=== PATIENT | female | born 1975 | race Caucasian/White ===

== ENCOUNTER → 2019-10-25 10:07 | Outpatient (CLI) | payer BC, SELFPAY ==
--- NOTE | ~2019-10-25 | US_ITS ---
EXAMINATION: US pelvic complete w TV DATE: 10/25/2019 10:49 INDICATION: Pelvic swelling. Palpable lump. Comparison:No prior studies for comparison. TECHNIQUE: Multiple transabdominal and endovaginal sonographic images of the pelvis performed. FINDINGS: The uterus measures 10.8 x 6 x 6.6 cm. There is a uterine fibroid measuring 3.1 x 3.1 x 3 c m anteriorly at the fundus. There are nabothian cysts. The endometrial complex measures 11 mm. The right ovary measures 2.7 x 1.5 x 2.3 cm and the left ovary measures 2.2 x 1.7 x 2.1 cm. There is a 1.4 cm follicle of the left ovary. There is no free fluid in the pelvis. There are no abnormal masses seen on either side. IMPRESSION: 1. 3.1 cm uterine fibroid. Reviewed, dictated and finalized at location A. S AND SERVICE ASSOCIATE IMPRESSION: 1. 3.1 cm uterine fibroid.
== END ==
PROVIDERS: PCP Nurse Practitioner; Visit Provider Nurse Practitioner
DX: R19.09 Other intra-abdominal and pelvic swelling, mass and lump (principal); D25.9 Leiomyoma of uterus, unspecified
CPT/HCPCS: 76830; 76856

== ENCOUNTER → 2019-11-22 10:24 | Outpatient (CLI) | payer BC, SELFPAY ==
--- NOTE | ~2019-11-22 | MM_ITS ---
EXAMINATION: MM screening rod BI w juliann HISTORY: Screening mammogram TECHNIQUE: Craniocaudal and mediolateral oblique 3-D tomosynthesis images were obtained and synthetic 2-D images were generated. CAD analysis was submitted and interpreted. COMPARISON: 09/02/2018 bilateral diagnostic digital mammogram 09/02/2018 bilateral complete breast ultrasound examination BREAST PARENCHYMAL COMPOSITION: The breasts are heterogeneously dense, which may obscure small masses . FINDINGS: Bilateral benign-appearing circumscribed opacities are noted in the upper outer quadrant of each breast, consistent with benign intramammary lymph nodes. There is no evidence of suspicious mas s, calcification, or architectural distortion to suggest malignancy in either breast. There has been no suspicious interval change. IMPRESSION: 1. No mammographic evidence of malignancy. 2. Recommend routine screening mammography in one year. BI-RADS Category 2: Benign finding(s). Reviewed, dictated and finalized at location A. TYPE WORKER
== END ==
PROVIDERS: Visit Provider Nurse Practitioner
DX: Z12.31 Encounter for screening mammogram for malignant neoplasm of breast (principal)
CPT/HCPCS: 77063; 77067

== ENCOUNTER 2020-02-27 00:06 | Outpatient (CLI) | payer BC, SELFPAY ==
[2020-02-27 15:54] LABS: SARS-CoV-2 RNA PCR Negative
== END 2020-02-27 00:07 | disposition home or self-care (01) ==
LOC: ANHCOVIDDT 00:06
PROVIDERS: Visit Provider Obstetrics & Gynecology Gynecology
DX: Z01.818 Encounter for other preprocedural examination (principal); Z11.59 Encounter for screening for other viral diseases
CPT/HCPCS: 87635; C9803; U0003

== ENCOUNTER 2020-02-27 07:44 | Outpatient (CLI) | payer BC, SELFPAY | END 2020-02-27 07:45 | disposition home or self-care (01) | LOC: ANHSURGERY 07:46 | PROVIDERS: Visit Provider Obstetrics & Gynecology Gynecology | DX: N81.10 Cystocele, unspecified (principal) | CPT/HCPCS: 36415; 86850; 86900; 86901 ==

== ENCOUNTER 2020-03-01 03:06 | Day surgery (SDC) | payer BC, SELFPAY ==
[2020-02-18 15:09] VITALS: BMI 25.7
--- NOTE | 2020-02-29 16:07 | WPDANESEPP ---
Anes - Eval Pre Procedure Procedure: Operation Date: 03/01/20 07:30 Proposed Procedures p Vaginal Hysterectomy, Bilateral Salpingo-Oophorectomy - Kate Malik MD s Anterior Repair - Kate Malik MD Date/Time: 02/29/20 16:07 Surgeon: faye Pre Op Diagnosis: pelvic organ prolapse Patient Data Age: 44 Gender: F Height: 1.63 m Weight: 68.05 kg Allergies Allergy/AdvReac Type Severity Reaction Status Date / Time No Known Allergies Allergy Mild Unverified 02/18/20 15:47 Home Medications Medication Instructions Recorded Confirmed Type multivitamin [Daily Multi-Vitamin] 1 tablet PO DAILY 02/18/20 02/18/20 History omeprazole magnesium [Prilosec OTC] 20 mg PO DAILY 02/18/20 02/18/20 History Patient hx anesthesia problems: none Family hx anesthesia problems: none PMFSH Past Medical History Medical History (Updated 02/29/20 @ 16:09 by Ashley Espitia CRNA) GERD (gastroesophageal reflux disease) Surgical History Surgical History (Updated 02/29/20 @ 16:09 by Ashley Espitia CRNA) H/O tubal ligation Social History Social History Gender identity (if verbalized by the patient): Female Exam Day of Procedure 02/29/20 16:07
[2020-03-01] VITALS (16 sets, daily range): BP systolic 78–146; BP diastolic 44–68; PULSE 68–105; RESP 10–20; TEMP 36.1–36.9; O2SAT 93–100
--- NOTE | 2020-03-01 06:55 | WPDANESEPPF ---
Anes - Initial Pre Proc Eval Procedure: Operation Date: 03/01/20 07:30 Proposed Procedures p Vaginal Hysterectomy, Bilateral Salpingo-Oophorectomy - Kate Malik MD s Anterior Repair - Kate Malik MD Date/Time: 03/01/20 06:55 Surgeon: Kate Malik MD Pre Op Diagnosis: pelvic organ prolapse Patient Data Age: 44 Gender: F Height: 5 ft 4 in Weight: 68.05 kg Allergies Allergy/AdvReac Type Severity Reaction Status Date / Time No Known Allergies Allergy Mild Unverified 02/18/20 15:47 Home Medications Medication Instructions Recorded Confirmed Type multivitamin [Daily Multi-Vitamin] 1 tablet PO DAILY 02/18/20 02/18/20 History omeprazole magnesium [Prilosec OTC] 20 mg PO DAILY 02/18/20 02/18/20 History Patient hx anesthesia problems: none Family hx anesthesia problems: none [facility] Past Medical History Medical History (Updated 02/29/20 @ 16:09 by Ashley Espitia CRNA) GERD (gastroesophageal reflux disease) Surgical History Surgical History (Updated 02/29/20 @ 16:09 by Ashley Espitia CRNA) H/O tubal ligation Social History Social History Gender identity (if verbalized by the patient): Female Anes - Eval Final PreProcedure Day of Procedure 03/01/20 06:55 Patient weight: normal Heart: regular rate and rhythm Lungs: clear to auscultation Airway: Mallampati scale class II Neurological: alert and oriented Last oral intake: >/= 8 hours ASA classification: II Emergent: no Anesthetic plan: proceed Anesthesia type and monitoring: general ETT and standard monitoring Informed Consent: The patient's anesthetic plan and its attendant risks and benefits were discussed with the patient/family/POA. Questions were solicited and answers provided to the satisfaction of the patient/family/POA.
--- NOTE | 2020-03-01 07:13 | PM.IMHP ---
H&P: HPI History of Present Illness Chief complaint: pelvic organ prolapse Narrative: Michelle Schaffer is a 44 year old female with increasing uterine prolapse and cystocele. Patient complains of increased pelvic pressure and pulling. No or GI complaints. Patient has decided on surgical repair over other options. Reviewed procedure and plan for TVH-possible BSO and anterior vaginal repair. Risks of needing to convert to open discussed. Uterus 10.8 cm with anterior 3 cm fibroid noted. Aware I may not be able to remove tubes and ovaries if not able to reach them. Patient aware removal of ovaries will mean she is menopausal and plans to take estrogen. Patient initially did not want ovaries removed but has decided she does now want them removed if possible. Risks of infection, bleeding, and injury to internal organs reviewed (navid. bowel, bladder, ureters). Discussed risks of DVT and general anesthesia as well. Patient questions answered and patient agrees to proceed. Review of Systems Constitutional: Constitutional: Reports no additional constitutional complaints Cardiovascular: Cardiovascular: Reports no additional cardiovascular complaints Respiratory: Respiratory: Reports no additional respiratory complaints Gastrointestinal: Gastrointestinal: Reports no additional gastrointestinal complaints Genitourinary: Genitourinary: Reports no additional female genitourinary complaints Comments: pelvic pressure PMFSH Past Medical History Medical History (Updated 03/01/20 @ 07:22 by Kate Malik MD) GERD (gastroesophageal reflux disease) Gonorrhea (normal spontaneous vaginal delivery) Surgical History Surgical History (Updated 02/29/20 @ 16:09 by Ashley Espitia CRNA) H/O tubal ligation Social History Social History Gender identity (if verbalized by the patient): Female Meds Home Medications and Allergies Home Medications Medication Instructions Recorded Confirmed Type multivitamin [Daily Multi-Vitamin] 1 tablet PO DAILY 02/18/20 02/18/20 History omeprazole magnesium [Prilosec OTC] 20 mg PO DAILY 02/18/20 02/18/20 History Allergies Allergy/AdvReac Type Severity Reaction Status Date / Time No Known Allergies Allergy Mild Unverified 03/01/20 07:17 Exam Const: General: healthy appearing and alert Orientation/consciousness: patient oriented x3 Resp: Effort & Inspection: normal respiratory effort Auscultation: clear to auscultation bilaterally Cardio: Rate: regular rate Rhythm: regular rhythm GI: GI Palp: Yes Soft to palpation, No Tenderness to palpation present (GI) and No Palpable mass present : External Female Exam: normal external appearance Speculum Exam - Vagina: normal appearance of the vagina and normal vaginal discharge Speculum Exam - Cervix: normal appearance of the cervix Bimanual exam- vagina & uterus: uterine size normal, consistency normal and other (uterus +2 spines ) Bimanual Exam- Adnexa, other: normal adnexae, No adnexal tenderness and cystocele Neuro: General: patient oriented x3 Assessment and Plan Assessment and plan (1) Uterine prolapse: Code(s): N81.4 - Uterovaginal prolapse, unspecified Status: Acute Assessment and Plan: Plan TVH-possible BSO (2) Cystocele: Status: Acute Assessment and Plan: plan anterior vaginal repair
[2020-03-01] MEDS: ceFAZolin 2 GM/D5W 50 ML 2 GM/50 ML BAG IVPB (07:25)
[2020-03-01] MEDS: LIDO 1%/EPINEPHRINE 1:100,000 20 ML VIAL 30 ML INFILTRATE (08:07)
--- NOTE | 2020-03-01 09:06 | PM.OP ---
Procedure Note - Brief Procedure Note - Brief Date of procedure: 03/01/20 Pre-op diagnosis: pelvic organ prolapse uterine prolapse; cystocele Post-op diagnosis: same Procedure performed: TVH-BSO; anterior vaginal repair Anesthesia: SO Surgeon: Kate Malik MD Estimated blood loss (mL): 100 Drains: Yes (arriaga) Packing: Yes (vaginal) Pathology: yes (uterus, tubes, and ovaries) Complications: No immediate complications Condition: stable Disposition: PACU Findings: enlarged fibroid uterus; cervix at 1 cm above introitus at rest; 2nd degree cystocele; normal appearing tubes and ovaries
--- NOTE | 2020-03-01 09:07 | P.DS_ITS ---
DS: Admitting Diagnosis Admitting Diagnosis Admitting Diagnosis: Cystocele, unspecified uterine prolapse DS: Discharge Diagnosis Discharge Diagnosis (1) Uterine prolapse: Code(s): N81.4 - Uterovaginal prolapse, unspecified Status: Acute (2) Cystocele: Status: Acute DS: Summary Hospital Course Reason for hospitalization: post op observation for bleeding and for pain control Status at Discharge Functional status at discharge: independent ambulation Overall status at discharge: patient is progressing back to baseline Time Spent with Patient Time attestation: Total time spent providing and/or coordinating discharge services: DS: Data Data Completed and Pending Pending studies at discharge: Pending at discharge 03/01/20 08:36 Surgical [PTH] Routine Discharge Plan Discharge Patient Disposition: Home, Self-Care Discharge Instructions: pelvic rest x 6 wks no lifting >10 lbs no driving x 2 wks shower only until 6 wks Follow-up/Referrals: Kate Malik MD [Physician] - 1 Week Discharge Medications: New estradiol [Climara] 0.05 mg/24 hr Patch Weekly 0.05 mg transdermal WEEKLY Qty: 4 RF: 12 hydrocodone-acetaminophen 5-325 mg Tablet 1 tab PO Q3H PRN (Reason: Pain Rated 5 Or Less) Qty: 20 RF: 0 Continued multivitamin [Daily Multi-Vitamin] Tablet 1 tablet PO DAILY RF: 0 omeprazole magnesium [Prilosec OTC] 20 mg Tablet,Delayed Release (Dr/Ec) 20 mg PO DAILY RF: 0 Primary Care Provider: PHYSICIAN,CUSTOM STUDIO COORDINATOR Attending physician on admission: Kate Malik
[2020-03-01] MEDS: LACTATED RINGERS 1,000 ML 30 ML IV CONT ×3 (09:12→10:07)
[2020-03-01] MEDS: ONDANSETRON INJ 4 MG/2 ML VIAL IV PUSH ×2 (09:36→16:49)
--- NOTE | 2020-03-01 10:22 | SUR.PHASEI ---
1020 updated brittney(Cuco) ON PT CONDTIOBN AND ROOM#
[2020-03-01] MEDS: DEXTROSE 5%/LACTATED RINGERS 1,000 ML 125 ML IV CONT ×2 (11:15→18:51)
[2020-03-01] MEDS: KETOROLAC 30 MG/ML VIAL (*BKC) IV PUSH (11:17)
--- NOTE | 2020-03-01 11:23 | PC.NURSE ---
This patient, Michelle Schaffer, was received from PACU on 03/01/20 at 1100. Patient/family oriented to unit policies and routines
[2020-03-01] MEDS: ESTRADIOL 7 DAY 0.05 MG PATCH TRANSDERM (13:33)
[2020-03-01] MEDS: PANTOPRAZOLE 40 MG TABLET PO (21:05)
--- NOTE | 2020-03-01 21:38 | OP_ITS ---
DATE OF PROCEDURE: 03/01/2020 PREOPERATIVE DIAGNOSES: Uterine prolapse, cystocele. POSTOPERATIVE DIAGNOSES: Uterine prolapse, cystocele. PROCEDURES PERFORMED: Total vaginal hysterectomy, bilateral salpingo-oophorectomy, anterior vaginal repair. ANESTHESIA: General with ET tube. FINDINGS: The uterus at rest under anesthesia is 1 cm above the introitus, there was a second-degree cystocele. Normal-appearing tubes and ovaries. The uterus was enlarged with fibroids, one in the fundus and one in the lower cervix. ESTIMATED BLOOD LOSS: 100 mL. PATHOLOGY: Uterus, tubes, and ovaries. DESCRIPTION OF PROCEDURE: The patient was taken to the operating room, placed under anesthesia in the dorsal lithotomy position. She was prepped and draped in usual sterile fashion. A short weighted speculum was placed posteriorly. Leroy retractor was placed anteriorly. The cervix was grasped on the anterior lip with a tenaculum and the vaginal mucosa is injected circumferentially with 1% lidocaine with epinephrine. The scalpel was used to circumferentially incise the vaginal mucosa around the cervix. The vaginal mucosa is dissected off anteriorly using blunt dissection. The peritoneum was entered with Metzenbaum. The Leroy retractor was replaced intraperitoneally. The posterior vaginal mucosa was dissected off the cervix using sharp and blunt dissection. The peritoneum was entered with a Pean and once the incision was extended laterally, the long curved weighted speculum was placed intraperitoneally. The cardinal and uterosacral ligaments were serially clamped, transected, and suture ligated with 0 Vicryl. Tagged for future use. The uterine vessels were clamped, transected, suture ligated with 0 Vicryl. The posterior fundus was grasped with piercing towel clamps and the fundus was delivered through the posterior cul-de-sac. The utero-ovarian ligaments are clamped, transected, and suture ligated with 0 Vicryl and tagged for future use. The uterus was handed off. A moist sponge stick was placed top of the omentum out of the surgical field. The left tube and ovary are grasped with a Lake. The infundibulopelvic ligament was clamped, transected, and suture-ligated with 0 Vicryl. The identical procedure was performed on the opposite side. All pedicles were hemostatic. The sponge stick was removed. The peritoneum was closed using 0 Ethibond in a pursestring fashion. The vaginal mucosa was closed using 0 Vicryl in a running locked fashion. Attention was then turned to the cystocele. The base of the cystocele was grasped with Allis clamps at 5 and 7 o'clock. The intervening tissue was incised in a horizontal fashion with a scalpel. The midline vaginal mucosa was dissected off the cystocele using Metzenbaums. The edges were grasped with Allis clamps until the apex was reached. The lateral portions of the vaginal mucosa were dissected off using sharp and blunt dissection. The cystocele was reduced using 0 Ethibond horizontal interrupted mattress sutures. Once the cystocele was fully reduced, excess vaginal mucosa was excised using Metzenbaums. The vaginal mucosa was closed using 0 Vicryl in a running locked fashion. Vaginal packing coated with Premarin cream was placed vaginally. Noyola catheter is previously placed by the OR staff. The patient was awakened from anesthesia and taken to Recovery in stable condition. Ernesto I MT: Georgie
[2020-03-02 00:40] VITALS: BP 101/55; PULSE 110; RESP 16; TEMP 36.9; O2SAT 100
[2020-03-02 06:05] LABS: Basophils Percent Auto 0.1 % (0.2-1.2); Eosinophils Percent Auto 0.1 % (0-4.4); Hematocrit 37.1 % (37.0-47.0); Hemoglobin 12.6 g/dL (12.0-15.0); Immature Granulocyte Absolute 0.06 K/mm3 (0.00-0.031); Immature Granulocyte Percent A 0.4 % (0-0.5); Lymphocytes Absolute Auto 1.89 K/mm3 (0.9-3.2); Lymphocytes Percent Auto 12.4 % (18.3-44.2); Mean Corpuscular Hemoglobin 29.6 pg (26-34); Mean Corpuscular Volume 87.1 fl (80-100); Mean Platelet Volume 9.7 fl (7.4-10.4); Monocytes Absolute Auto 1.5 K/mm3 (0.1-0.6); Monocytes Percent Auto 9.7 % (2.6-8.5); Neutrophils Absolute Auto 11.8 K/mm3 (1.3-6.7); Neutrophils Percent Auto 77.3 % (45.5-73.1); Platelet Count Result 264 k/mm3 (150-375); Red Blood Count 4.26 M/mm3 (4.2-5.4); White Blood Count 15.3 K/mm3 (4.5-10.0)
--- NOTE | 2020-03-02 07:47 | P.PNAN_ITS ---
Anes - Prog Note Post-Op Date/Time: 03/02/20 07:47 Cardiovascular status: normal Respiratory status: normal Airway patency: baseline Mental status: baseline Post-Op hydration status: normal Vital Signs: Last Vital Signs Temp 36.9 C 03/02/20 00:40 Pulse 110 H 03/02/20 00:40 Resp 16 03/02/20 00:40 BP 101/55 L 03/02/20 00:40 Pulse Ox 100 03/02/20 00:40 I/O: Intake & Output 03/01/20 03/01/20 03/02/20 15:59 23:59 07:59 Intake Total 1750 1290 Output Total 100 1650 1250 Balance 6489 -360 -5106 Laboratory Tests 03/02/20 05:55 03/02/20 05:55 WBC 15.3 H RBC 4.26 Hgb 12.6 Hct 37.1 MCV 87.1 MCH 29.6 MCHC 34.0 RDW 15.0 H Plt Count 264 MPV 9.7 Immature Gran % (Auto) 0.4 Neut % (Auto) 77.3 H Lymph % (Auto) 12.4 L [place]han % (Auto) 9.7 H Eos % (Auto) 0.1 Baso % (Auto) 0.1 L Lymph # (Auto) 1.89 [place] # (Auto) 1.5 H Eos # (Auto) 0.0 Baso # (Auto) 0.0 Abs Immat Gran (auto) 0.06 H Absolute Neuts (auto) 11.8 H Absolute Nucleated RBC 0.0 Nucleated RBC % 0.0 Post-procedural complaints: nausea (mild, treatment effective) Patient Feedback: Patient satisfied with anesthetic care.
[2020-03-02 07:55] VITALS: BP 90/66; PULSE 103; RESP 16; TEMP 37.1; O2SAT 100
--- NOTE | 2020-03-02 07:55 | PM.GYNPNOP ---
DIABETES EDUCATOR - A/P Assessment and plan (1) History of total vaginal hysterectomy (TVH): Code(s): Z90.710 - Acquired absence of both cervix and uterus Status: Acute Assessment and Plan: Doing well post op. DC home. Plans patch E2 Postoperative Procedures: Procedures Operation Date: 03/01/20 07:30 Actual Procedures Side Surgeon p Vaginal Hysterectomy, Bilateral Salpingo-Oophorectomy Bilateral Kate Malik MD s Anterior Repair Not Applicable Kate Malik MD Time Spent With Patient Time: Total time spent is greater than 50% in coordination of care (as documented) at patient's floor/unit and/or counseling patient: Time with patient: less than 15 minutes DIABETES EDUCATOR- PN:Subj Post-Op Subjective Date/time seen: 03/02/20 07:55 Subjective: patient reports feeling better, pain is well controlled and other (nausea last night but not now) Exam GI: Other: abdomen soft, nt DIABETES EDUCATOR - PN: Obj Data Vital Signs Vital Signs: Vital Signs - 24 hr 03/01/20 09:15 03/01/20 09:30 03/01/20 09:45 Temperature 97.3 F L Pulse Rate 75 69 68 Respiratory Rate 12 16 10 L Blood Pressure 93/48 L 78/44 L 101/59 L Pulse Oximetry 100 100 100 03/01/20 09:58 03/01/20 10:12 03/01/20 10:30 Temperature Pulse Rate 81 80 79 Respiratory Rate 16 12 14 Blood Pressure 102/61 113/63 107/60 Pulse Oximetry 96 97 93 03/01/20 11:00 03/01/20 11:15 03/01/20 11:30 Temperature 96.9 F L Pulse Rate 79 83 83 Respiratory Rate 18 16 16 Blood Pressure 107/61 101/61 146/54 H Pulse Oximetry 100 99 97 03/01/20 11:45 03/01/20 12:00 03/01/20 12:30 Temperature 97.8 F Pulse Rate 86 86 96 Respiratory Rate 16 16 16 Blood Pressure 103/60 111/57 L 102/55 L Pulse Oximetry 97 98 97 03/01/20 13:00 03/01/20 14:00 03/01/20 21:00 Temperature 98.4 F Pulse Rate 83 93 105 H Respiratory Rate 16 16 16 Blood Pressure 111/63 114/67 104/60 Pulse Oximetry 100 100 98 06/09/20 00:40 Temperature 98.4 F Pulse Rate 110 H Respiratory Rate 16 Blood Pressure 101/55 L Pulse Oximetry 100 Intake/Output Intake/Output: Intake & Output 02/28/20 02/29/20 03/01/20 03/02/20 23:59 23:59 23:59 23:59 Intake Total 3140 Output Total 1750 1250 Balance 1390 -1250 Meds/Results Medications: Active Medications Generic Name Dose Route Start Last Admin Trade Name Freq PRN Reason Stop Dose Admin Hydrocodone Bitart/Acetaminophen 1 tab 03/01/20 10:51 Bowie 5-325 Mg PO Q3H PRN Pain Rated 5 or Less Hydrocodone Bitart/Acetaminophen 1 tab 03/01/20 10:51 Bowie 10-325 Mg PO Q3H PRN Pain Rated 6 or Greater Estradiol 0.05 mg 03/01/20 11:00 03/01/20 13:33 Climara 7 Day TRANSDERM 0.05 mg WEEKLY ABIODUN Administration Dextrose/Lactated Ringer's 1,000 mls @ 125 mls/hr 03/01/20 10:51 03/01/20 18:51 Dextrose 5%/Lactated Ringers IV CONT 125 mls/hr .Q8H ABIODUN Administration Fentanyl Citrate 600 mcg in 30 mls @ 0 mls/hr 03/01/20 11:30 03/02/20 05:30 Fentanyl 20 Mcg/Ml Office Administrator IV CONT 10 mls/hr .Q0M PRN Titration WASTE MACHINE TENDER Management Protocol As Directed Ibuprofen 600 mg 03/01/20 10:51 Motrin PO Q6H PRN Cramping Ketorolac Tromethamine 30 mg 03/01/20 10:51 03/01/20 11:17 Toradol Inj IV PUSH 03/06/20 10:52 30 mg Q6H PRN Administration Pain Rated 4-6 Naloxone HCl 0.1 mg 03/01/20 10:51 Narcan IV PUSH Q2M PRN Respiratory rate less than 10 Ondansetron HCl 4 mg 03/01/20 10:51 03/01/20 16:49 Zofran Inj IV PUSH 4 mg Q6H PRN Administration Nausea And Vomiting Pantoprazole Sodium 40 mg 03/01/20 21:00 03/01/20 21:05 Protonix PO 40 mg Q24H ABIODUN Administration Simethicone 80 mg 03/01/20 10:51 Mylicon PO Q2H PRN Gas Labs CBC & Chem 7: 03/02/20 05:55 Labs: Laboratory Results - last 24 hr 03/02/20 05:55 WBC 15.3 H RBC 4.26 Hgb 12.6 Hct 37.1 MCV 87.1 MCH 29.6 MCHC 3
[2020-03-02] MEDS: IBUPROFEN 600 MG TABLET PO (08:28)
== END 2020-03-02 14:30 | disposition home or self-care (01) ==
LOC: ANHSURGERY 09:09 → ANHOB2 15:06
PROVIDERS: Visit Provider Obstetrics & Gynecology Gynecology
PROC: (CPT 58260; principal; 2020-03-01 07:30)
PROC: (CPT 57260; 2020-03-01 07:30)
DX: N81.4 Uterovaginal prolapse, unspecified (principal); N88.8 Other specified noninflammatory disorders of cervix uteri; N80.0 Endometriosis of uterus; D25.1 Intramural leiomyoma of uterus; N83.10 Corpus luteum cyst of ovary, unspecified side; K21.9 Gastro-esophageal reflux disease without esophagitis
CPT/HCPCS: 58262; 57240; 36415; 85025; 88307; 99199; A9270; J0131; J0690; J1100; J1170; J1885; J2250; J2405; J2704; J2710; J3010; J7030; J7120; J7121

== ENCOUNTER 2020-08-12 00:08 | Outpatient (CLI) | payer BC, SELFPAY ==
[2020-08-12 21:00] LABS: SARS-CoV-2 RNA PCR Negative
== END 2020-08-12 00:09 | disposition home or self-care (01) ==
LOC: ANHCOVIDDT 00:08
PROVIDERS: Visit Provider Podiatrist Foot & Ankle Surgery
DX: Z01.812 Encounter for preprocedural laboratory examination (principal); Z20.828 Contact with and (suspected) exposure to other viral communicable diseases
CPT/HCPCS: 87635; C9803; U0003

== ENCOUNTER 2020-08-13 04:11 | Day surgery (SDC) | payer BC, SELFPAY ==
[2020-08-03 09:59] VITALS: BMI 26.1
--- NOTE | 2020-08-12 09:00 | WPDANESEPPF ---
Anes - Initial Pre Proc Eval Procedure: Operation Date: 08/13/20 13:00 Proposed Procedures p Excision Soft Tissue Mass Second Toe Left Foot - Sagar Maciel DPM Date/Time: 08/12/20 09:00 Surgeon: Sagar Maciel DPM Pre Op Diagnosis: soft tissue mass 2nd toe left foot Patient Data Age: 44 Gender: F Height: 1.63 m Weight: 69 kg Allergies Allergy/AdvReac Type Severity Reaction Status Date / Time No Known Allergies Allergy Mild Verified 08/13/20 11:14 Home Medications Medication Instructions Recorded Confirmed Type omeprazole magnesium [Prilosec OTC] 20 mg PO DAILY 02/18/20 08/03/20 History Patient hx anesthesia problems: none Family hx anesthesia problems: none PMFSH Past Medical History Medical History (Updated 03/01/20 @ 07:22 by Kate Malik MD) GERD (gastroesophageal reflux disease) Gonorrhea (normal spontaneous vaginal delivery) Surgical History Surgical History (Updated 08/12/20 @ 09:00 by Surinder Zabala DO) H/O tubal ligation History of total vaginal hysterectomy (TVH) Social History Social History Smoking status: Never smoker Second hand tobacco smoke exposure: No Alcohol intake: current Drinks per week: 1 Substance use: never Living arrangements: alone Gender identity (if verbalized by the patient): Female Spiritual care concerns: No Anes - Eval Final PreProcedure Day of Procedure 08/12/20 09:00 Patient weight: overweight Heart: regular rate and rhythm Lungs: clear to auscultation and normal air movement Airway: Mallampati scale class II Neurological: alert and oriented Last oral intake: >/= 8 hours ASA classification: II Emergent: no Anesthetic plan: proceed Anesthesia type and monitoring: general LMA and standard monitoring Informed Consent: The patient's anesthetic plan and its attendant risks and benefits were discussed with the patient/family/POA. Questions were solicited and answers provided to the satisfaction of the patient/family/POA.
[2020-08-13 11:20] VITALS: BP 108/59; PULSE 76; RESP 16; TEMP 36.6; O2SAT 100
[2020-08-13] MEDS: LACTATED RINGERS 1,000 ML 30 ML IV CONT (11:46)
--- NOTE | 2020-08-13 12:56 | WPDHPUPDATE1 ---
History and Physical Update Update Date/Time: 08/13/20 12:56 History and Physical has been reviewed, including an updated exam of the patient. There are NO changes in the patient's condition. Risks, benefits, and alternatives have been discussed and questions answered. Patient agrees to proceed with procedure.
[2020-08-13] MEDS: SCOPOLAMINE 1.5 MG PATCH TRANSDERM (13:13)
--- NOTE | 2020-08-13 13:13 | SUR.PREOP ---
Discussed delay with patient, voices understanding.
[2020-08-13] MEDS: ceFAZolin 2 GM/D5W 50 ML 2 GM/50 ML BAG IVPB (13:46)
--- NOTE | 2020-08-13 14:11 | PM.PROC ---
Procedure Note - Detailed Date of procedure: 08/13/20 Pre-op diagnosis: soft tissue mass 2nd toe left foot Post-op diagnosis: same Procedure performed: Excision of soft tissue mass left foot Description of procedure: Under monitored sedation patient was brought into the operating room, placed on the operating table. Following MAC anesthesia local anesthesia was obtained using 2% Lidocaine plain and 0.5% Marcaine plain. The foot was then scrubbed, prepped, and draped in the usual aseptic manner. Attention was then directed to the dorsal left foot where a mass could be palpated. An incision was made over the lesion and was deepened down to the level of the mass using sharp and blunt dissection with great care taken to identify and retract all vital, neural and vascular structures. The mass was carefully dissected free of all soft tissue attachments and removed. It had the appearance of a lipoma. Wound was then flushed with copious amounts of sterile normal saline. the skin was repaired using 4-0 nylon. The wounds were then covered with a dry, sterile compressive dressing consisting of Steristrips, antibiotic ointment, Adaptic, 4 x 4?s, Ivy and Coban. The ankle tourniquet was deflated and prompt capillary refill response noted to all digits of the right foot. Patient tolerated procedure and anesthesia well. He was transferred to the recovery room with vital signs stable and neurovascular status intact to all digits of the right foot. Following a period of post-operative monitoring the patient will be discharged home with written and oral post-operative instructions. Anesthesia: GLMA Surgeon: Sagar Maciel DPM Forest Science Professor: None Estimated blood loss (mL): 5 Drains: No Packing: No Pathology: yes Complications: No immediate complications Condition: stable Disposition: PACU
[2020-08-13 14:14] VITALS: BP 107/80; PULSE 77; RESP 10; TEMP 36.3; O2SAT 100
[2020-08-13 14:30] VITALS: BP 109/70; PULSE 72; RESP 14; O2SAT 100
[2020-08-13 14:45] VITALS: BP 114/69; PULSE 70; RESP 12; O2SAT 98
--- NOTE | 2020-08-13 14:45 | SUR.PHASEI ---
PT AWAKE AND ALERT. PT READY TO SIT IN RECLINER AT DRINK PO FLUIDS.
[2020-08-13 14:52] VITALS: BP 112/62; PULSE 62; RESP 16
[2020-08-13 15:20] VITALS: BP 114/64; PULSE 67; RESP 16
--- NOTE | 2020-08-13 15:54 | SUR.PHASEII ---
ICE PACK APPLIED TO LEFT FOOT; POST-OP SHOE ORDERED AND PLACED ON LEFT FOOT.
== END 2020-08-13 15:50 | disposition home or self-care (01) ==
PROVIDERS: Visit Provider Podiatrist Foot & Ankle Surgery
PROC: (CPT 28039; principal; 2020-08-13 13:00)
DX: M79.89 Other specified soft tissue disorders (principal); K21.9 Gastro-esophageal reflux disease without esophagitis
CPT/HCPCS: 28039; 88304; A9270; J0690; J1100; J2250; J2405; J2704; J3010; J7120

== ENCOUNTER → 2020-12-14 16:11 | Outpatient (CLI) | payer OTHER, SELFPAY ==
--- NOTE | ~2020-12-14 | MM_ITS ---
EXAMINATION: MM screening [facility] BI w juliann HISTORY: Screening mammogram TECHNIQUE: Craniocaudal and mediolateral oblique 3-D tomosynthesis images were obtained and synthetic 2-D images were generated. CAD analysis was submitted and interpreted. COMPARISON: 11/22/2019, 09/02/2018 BREAST PARENCHYMAL COMPOSITION: There are scattered areas of fibroglandular density. FINDINGS: There is no evidence of suspicious mass, calcification, or architectural distortion to sugg est malignancy in either breast. There has been no suspicious interval change. IMPRESSION: 1. No mammographic evidence of malignancy. 2. Recommend routine screening mammography in one year. BI-RADS Category 1: Negative Reviewed, dictated and finalized at location A.
== END ==
PROVIDERS: Visit Provider Nurse Practitioner
DX: Z12.31 Encounter for screening mammogram for malignant neoplasm of breast (principal)
CPT/HCPCS: 77063; 77067

== ENCOUNTER 2021-01-06 16:48 | Outpatient (CLI) | payer OTHER, SELFPAY | END 2021-01-06 16:49 | disposition home or self-care (01) | LOC: ANHCOVIDVC 16:48 | DX: Z23 Encounter for immunization (principal) | CPT/HCPCS: 0001A; 91300 ==

== ENCOUNTER 2021-01-27 16:44 | Outpatient (CLI) | payer OTHER, SELFPAY | END 2021-01-27 16:45 | disposition home or self-care (01) | LOC: ANHCOVIDVC 16:44 | DX: Z23 Encounter for immunization (principal) | CPT/HCPCS: 0002A; 91300 ==

== ENCOUNTER 2022-09-23 08:45 | Outpatient (CLI) | payer OTHER, SELFPAY ==
--- NOTE | ~2022-09-23 | MM_ITS ---
EXAMINATION: MM screening [facility] BI w juliann HISTORY: Screening mammogram TECHNIQUE: Craniocaudal and mediolateral oblique 3-D tomosynthesis images were obtained and synthetic 2-D images were generated. CAD analysis was submitted and interpreted. COMPARISON: 12/14/2020, 11/22/2019 bilateral screening mammogram examinations 09/02/2018 diagnostic bilateral mammogram and complete bilateral breast ultrasound examination BREAST PARENCHYMAL COMPOSITION: There are scattered areas of fibroglandular density. FINDINGS: There is no evidence of suspicious mass, calcification, or architectural distortion to sugg est malignancy in either breast. There has been no suspicious interval change. IMPRESSION: 1. No mammographic evidence of malignancy. 2. Recommend routine screening mammography in one year. BI-RADS Category 1: Negative Reviewed, dictated and finalized at location A. MAKER
--- NOTE | ~2022-09-23 | DEXA_ITS ---
Bone Density Report Name: KENNEDY VAZ Age: 46 Sex: Female Ethnicity: White Date of : 1975 Indication: postmenopausal; hysterectomy; Referring Provider: RAJINDER CHADWICK M.D. Study: Bone densitometry was performed. Exam Date: September 23, 2022 Accession number: [id number] Bone Density: Region BMD T-score Z-score Classification AP Spine (L1-L4) 1.173 1.1 1.8 Normal Femoral Neck (Left) 0.785 -0.6 0.1 Normal Total Hip (Left) 0.870 -0.6 -0.2 Normal Femoral Neck (Right) 0.785 -0.6 0.1 Normal Total Hip (Right) 0.889 -0.4 0.0 Normal Total Hip Mean 0.880 -0.5 -0.1 Normal World Health Organization criteria for BMD impression classify patients as: Normal (T-score at or above -1.0), Osteopenia (T-score between -1.0 and -2.5), or Osteoporosis (T-score at or below -2.5). 10-year Fracture Risk: FRAX not reported because: All T-scores for Spine Total, Hip Total, Femoral Neck at or above -1.0 Clinical Information Provided by Patient: Has used the following medications: HRT (i.e. estrogen/hormone therapy) Has the following medical conditions: Hysterectomy Patient maximum height was 64.0 Menopause Age: 44 No regular weight bearing exercise Drinks caffeinated beverages Onset of menses at age 11 Number of children 1 Impression: The patient has normal bone mass. Discussion: BONE DENSITY IS ABOVE THE MINIMUM DESIRABLE LEVEL AT ALL SKELETAL SITES TESTED. This patient?s bone mineral density is above the minimum desirable level (T-score -1.0 or better) at all sites measured. The patient should follow a healthful lifestyle (good nutrition with adequate calcium and vitamin D, and appropriate weight-bearing exercise). Follow-Up: Consider repeating this study in 5 years or sooner if there is some new clinical indication. Reported by: [facility] on 09/23/2022 9:34:00 AM. Reviewed, dictated and finalized at location ALazaro COLON
== END 2022-09-23 08:46 ==
PROVIDERS: PCP Nurse Practitioner; Visit Provider Nurse Practitioner
DX: Z12.31 Encounter for screening mammogram for malignant neoplasm of breast (principal); Z78.0 Asymptomatic menopausal state
CPT/HCPCS: 77063; 77067; 77080

== ENCOUNTER 2024-03-20 07:44 | Day surgery (SDC) | payer OTHER, SELFPAY ==
[2024-02-15 15:16] VITALS: BMI 28.5
--- NOTE | 2024-03-20 07:21 | WPDANESEPPF ---
Anes - Initial Pre Proc Eval Procedure: Operation Date: 03/20/24 10:00 Proposed Procedures p Screening Colonoscopy - Ezio Isaac MD Date/Time: 03/20/24 07:21 Surgeon: Ezio Isaac MD Pre Op Diagnosis: Screening neoplasm of colon Patient Data Age: 48 Gender: F Height: 1.63 m Weight: 68.2 kg Allergies Allergy/AdvReac Type Severity Reaction Status Date / Time No Known Allergies Allergy Mild Verified 03/20/24 08:45 Home Medications Medication Instructions Recorded Confirmed Type omeprazole magnesium 20 mg 20 mg PO DAILY 02/18/20 03/20/24 History tablet,delayed release (Prilosec OTC) estradiol 1 mg tablet 1 mg PO DIRECTED 03/11/24 03/20/24 History Patient hx anesthesia problems: none Family hx anesthesia problems: none Results Review: All pre-operative results and documents have been reviewed as part of the pre-operative evaluation. [facility] Past Medical History Medical History (Updated 03/20/24 @ 09:24 by Ezio Isaac MD) GERD (gastroesophageal reflux disease) Gonorrhea (normal spontaneous vaginal delivery) Surgical History Surgical History (Updated 08/12/20 @ 09:00 by Surinder Zabala DO) H/O tubal ligation History of total vaginal hysterectomy (TVH) Social History Social History Smoking status: Never smoker Second hand tobacco smoke exposure: No Alcohol intake: current Drinks per week: 1 Substance use: current Substance use type: does not use Living arrangements: alone Gender identity (if verbalized by the patient): Female Spiritual care concerns: No Anes - Eval Final PreProcedure Day of Procedure 03/20/24 07:21 Patient weight: overweight Heart: regular rate and rhythm Lungs: clear to auscultation Airway: Mallampati scale class II Neurological: alert and oriented Last oral intake: >/= 8 hours ASA classification: II Emergent: no Anesthetic plan: proceed Anesthesia type and monitoring: general GIVS and standard monitoring Results Review: All pre-operative results and documents have been reviewed as part of the pre-operative evaluation. Informed Consent: The patient's anesthetic plan and its attendant risks and benefits were discussed with the patient/family/POA. Questions were solicited and answers provided to the satisfaction of the patient/family/POA.
[2024-03-20 08:51] VITALS: BMI 27.8
[2024-03-20 08:52] VITALS: BP 112/74; PULSE 71; RESP 14; TEMP 36.1; O2SAT 100
[2024-03-20] MEDS: LACTATED RINGERS 1,000 ML 150 ML IV CONT (09:02)
--- NOTE | 2024-03-20 09:23 | PM.HPGS ---
History of Present Illness History of Present Illness Consent: Risks, benefits, and alternatives have been discussed and questions answered. Patient agrees to proceed with procedure. Chief complaint: Screening neoplasm of colon Narrative: Michelle Schaffer is a 48 year old female presents for screening colonoscopy. Her current weight appetite and bowel movements are normal. Patient denies abdominal pain. She has had no bleeding. Family history noncontributory. Review of Systems Review of Systems: All systems reviewed & are unremarkable except as noted in HPI and below PMFSH Past Medical History Medical History (Updated 03/20/24 @ 09:24 by Ezio Isaac MD) GERD (gastroesophageal reflux disease) Gonorrhea (normal spontaneous vaginal delivery) Surgical History Surgical History (Updated 08/12/20 @ 09:00 by Surinder Zabala DO) H/O tubal ligation History of total vaginal hysterectomy (TVH) Social History Social History Smoking status: Never smoker Second hand tobacco smoke exposure: No Alcohol intake: current Drinks per week: 1 Substance use: current Substance use type: does not use Living arrangements: alone Gender identity (if verbalized by the patient): Female Spiritual care concerns: No Meds Home Medications and Allergies Home Medications Medication Instructions Recorded Confirmed Type omeprazole magnesium 20 mg 20 mg PO DAILY 02/18/20 03/20/24 History tablet,delayed release (Prilosec OTC) estradiol 1 mg tablet 1 mg PO DIRECTED 03/11/24 03/20/24 History Allergies Allergy/AdvReac Type Severity Reaction Status Date / Time No Known Allergies Allergy Mild Verified 03/20/24 08:45 Vital Signs Vital Signs - 24 hr 03/20/24 08:52 Temperature 97 F L Pulse Rate 71 Respiratory Rate 14 Blood Pressure 112/74 Pulse Oximetry 100 Oxygen Delivery Room Air Exam Narrative: Physical exam reveals patient to be alert. Vital signs stable. HEENT exam is unremarkable. Patient is a lungs are clear to auscultation and percussion. Heart is without murmur or extra sounds. Abdomen bowel sounds are present soft nontender with no organomegaly. Digital external rectal exam normal. Assessment and Plan Assessment and plan (1) Screen for colon cancer: Code(s): Z12.11 - Encounter for screening for malignant neoplasm of colon Status: Acute Assessment and Plan: Patient presents today for screening colonoscopy. Further recommendations may be given after endoscopy.
[2024-03-20 09:55] VITALS: BP 98/68; PULSE 77; RESP 16; O2SAT 100
[2024-03-20 10:05] VITALS: BP 101/62; PULSE 79; RESP 16; O2SAT 100
[2024-03-20 10:15] VITALS: BP 106/73; PULSE 80; RESP 16; O2SAT 100
--- NOTE | 2024-03-20 10:55 | WPDANESPN ---
Anes - Prog Note Post-Op Date/Time: 03/20/24 10:55 Cardiovascular status: normal Respiratory status: normal Airway patency: baseline Mental status: baseline Post-Op hydration status: normal Vital Signs: Last Vital Signs Temp 36.1 C L 03/20/24 08:52 Pulse 80 03/20/24 10:15 Resp 16 03/20/24 10:15 BP 106/73 03/20/24 10:15 Pulse Ox 100 03/20/24 10:15 O2 Del Method Room Air 03/20/24 10:15 Pain Score (VAS): 0 I/O: Intake & Output 03/19/24 03/20/24 03/20/24 23:59 07:59 15:59 Intake Total 500 Balance 500 Post-procedural complaints: none Patient Feedback: Patient satisfied with anesthetic care. Other Findings: Patient vital signs back to baseline. Patient denies nausea and vomiting. Patient's pain under control. Patient OK for discharge.
== END 2024-03-20 10:30 | disposition home or self-care (01) ==
PROVIDERS: Visit Provider Internal Medicine Gastroenterology
PROC: 0DJD8ZZ Inspection of Lower Intestinal Tract, Via Natural or Artificial Opening Endoscopic (ICD-10-PCS; CPT 45378; principal; 2024-03-20 10:00)
DX: Z80.0 Family history of malignant neoplasm of digestive organs (principal); K64.8 Other hemorrhoids
CPT/HCPCS: 45378

== ENCOUNTER 2024-06-28 11:02 | Outpatient (CLI) | payer OTHER, SELFPAY ==
--- NOTE | ~2024-06-28 | MM_ITS ---
EXAMINATION: MM screening [facility] BI w juliann HISTORY: Screening TECHNIQUE: Craniocaudal and mediolateral oblique 3-D tomosynthesis images were obtained and synthetic 2-D images were generated. CAD analysis was submitted and interpreted. COMPARISON: Comparison to multiple prior studies sequentially, with oldest reviewed study dated 08/24. BREAST PARENCHYMAL COMPOSITION: Not dense: There are scattered areas of fibroglandular density. FINDINGS: There is no evidence of suspicious mass, calcification, or architectural distortion to sugg est malignancy in either breast. There has been no suspicious interval change. IMPRESSION: 1. No mammographic evidence of malignancy. 2. Recommend routine screening mammography in one year. BI-RADS Category 1: Negative Reviewed, dictated and finalized at location B.
== END 2024-06-28 11:03 | disposition home or self-care (01) ==
LOC: MICIMG 11:04
PROVIDERS: PCP Nurse Practitioner; Visit Provider Nurse Practitioner
DX: Z12.31 Encounter for screening mammogram for malignant neoplasm of breast (principal)
CPT/HCPCS: 77063; 77067

== ENCOUNTER 2025-09-04 08:26 | Outpatient (CLI) | payer OTHER, SELFPAY ==
--- NOTE | ~2025-09-04 | MM_ITS ---
EXAMINATION: MM screening [facility] BI w juliann HISTORY: Screening. TECHNIQUE: Craniocaudal and mediolateral oblique 3-D tomosynthesis images were obtained and synthetic 2-D images were generated. CAD analysis was submitted and interpreted. COMPARISON: 2023, 2021, and 2020. BREAST PARENCHYMAL COMPOSITION: Dense: The breasts are heterogeneously dense FINDINGS: No suspicious masses are seen. There are no suspicious calcifications. No unexplained architectural distortion is seen. There are no skin or nipple abnormalities identified. There is no adenopathy seen on the images submitted. IMPRESSION: No mammographic evidence to suggest malignancy is seen. The patient may return to screening mammography as per ACR guidelines. BI-RADS 1 - Negative. Reviewed, dictated and finalized at location C. [employer]
== END 2025-09-04 08:27 | disposition home or self-care (01) ==
LOC: ANHFOHIMG 08:29
PROVIDERS: PCP Nurse Practitioner Adult Health; Visit Provider Nurse Practitioner
DX: Z12.31 Encounter for screening mammogram for malignant neoplasm of breast (principal)
CPT/HCPCS: 77063; 77067